=== PATIENT | female | born 1960 | race Caucasian/White ===

== ENCOUNTER 2017-11-12 22:02 | Observation (INO) | payer OTHER ==
[2017-11-12 22:51] LABS: Troponin I Less than 0.010 ng/mL (< 0.028)
[2017-11-12 23:36] VITALS: BMI 28.0
[2017-11-13] MEDS ORDERED: Acetaminophen 325 MG TAB PO PRN
[2017-11-13] MEDS ORDERED: Ondansetron HCl/PF 4 MG/2 ML Vial IVP PRN
[2017-11-13] MEDS ORDERED: Aspirin 325 MG TAB PO SCH ×2 (00:15→08:00)
[2017-11-13 01:27] LABS: Troponin I Less than 0.010 ng/mL (< 0.028)
[2017-11-13] MEDS ORDERED: Zolpidem Tartrate 5 MG TAB PO SCH ×2 (01:30→21:00)
[2017-11-13 04:03] LABS: #Basophils 0.1 thou/uL (0.0-0.2); #Eosinphils 0.5 thou/uL (0.0-0.7); #Lymphocytes 4.3 thou/uL (1.20-3.40); #Monocytes 0.8 thou/uL (0.11-0.59); #Neutrophils 5.3 thou/uL (1.40-6.50); %Basophils 0.8 % (0.0-1.0); %Eosinophils 4.6 % (0.0-10.0); %Lymphocytes 39.2 % (21.0-51.0); %Monocytes 7.5 % (0.0-10.0); %Neutrophils 47.8 % (42.0-75.0); Hemoglobin 13.3 g/dL (12.0-16.0); Mean Corpuscular HGB CONC 33.2 g/dL (32.0-36.0); Mean Corpuscular Hemoglobin 31.3 pg (27.0-31.0); Mean Corpuscular Volume 94.2 fL (78.0-98.0); Mean Platelet Volume 8.5 fL (7.4-10.4); Platelet Count 250 thou/uL (130-400); RBC Distribution Width 12.8 % (11.5-14.5); Red Blood Cell (RBC) Count 4.25 mill/uL (4.20-5.40)
[2017-11-13 04:24] LABS: Anion Gap 14 mmol/L (10-20); BUN (Urea Nitrogen) 13 mg/dL (9.8-20.1); Calc. Creatinine Clearance 85 mL/min (70-130); Calcium 9.5 mg/dL (7.8-10.44); Carbon Dioxide 26 mmol/L (22-29); Chloride 103 mmol/L (98-107); Estimated GFR-MDRD 67; Glucose 102 mg/dL (70-105); Potassium 3.6 mmol/L (3.5-5.1); Sodium 139 mmol/L (136-145)
[2017-11-13] MEDS ORDERED: Enoxaparin Sodium 40 MG/0.4 ML SYRINGE SC SCH (09:00)
[2017-11-13] MEDS ORDERED: FLUoxetine HCl 20 MG CAP PO SCH (09:00)
--- NOTE | 2017-11-13 09:55 | PDOC.PN ---
- Subjective Encounter Start Date: 11/13/17 Encounter Start Time: 09:00 Subjective: no current chest pain or sob -: feels better - Objective Resuscitation Status: Resuscitation Status FULL:Full Resuscitation MAR Reviewed: Yes Vital Signs & Weight: Vital Signs (12 hours) Temp Pulse Resp BP BP Pulse Ox 11/13/17 07:46 97.8 F 57 L 15 133/73 94 L 11/13/17 03:28 58 L 18 137/65 93 L 11/12/17 23:33 97.3 F L 50 L 20 162/74 H 98 Weight Weight 163 lb 11.2 oz Result Diagrams: 11/13/17 03:29 11/13/17 03:29 Phys Exam - Physical Examination HEENT: PERRLA, moist MMs Neck: no JVD, supple Respiratory: no wheezing, no rales Cardiovascular: RRR, no significant murmur Gastrointestinal: soft, non-tender, positive bowel sounds Musculoskeletal: no edema, pulses present Neurological: non-focal, moves all 4 limbs Psychiatric: normal affect, A&O x 3 Dx/Plan (1) Chest pain Code(s): R07.9 - CHEST PAIN, UNSPECIFIED Status: Acute Qualifiers: Chest pain type: unspecified Qualified Code(s): R07.9 - Chest pain, unspecified (2) Acute bronchitis Code(s): J20.9 - ACUTE BRONCHITIS, UNSPECIFIED Status: Acute Qualifiers: Bronchitis organism: unspecified organism Qualified Code(s): J20.9 - Acute bronchitis, unspecified (3) Tobacco abuse Code(s): Z72.0 - TOBACCO USE Status: Chronic - Plan await exercise stress test results -: alb inh q6h prn -: may dc home if stress test is normal * . Review of Systems - Medications/Allergies Allergies/Adverse Reactions: Allergies Allergy/AdvReac Type Severity Reaction Status Date / Time codeine Allergy Verified 11/13/17 00:17 Medications: Current Medications Acetaminophen (Tylenol) 650 mg PO Q4H PRN PRN Reason: Headache/Fever or Pain Last Admin: 11/13/17 00:48 Dose: 650 mg Aspirin (Aspirin) 325 mg PO QAM-WM [facility] Enoxaparin Sodium (Lovenox) 40 mg SC 0900 [facility] Fluoxetine HCl (Prozac) 60 mg PO DAILY AISHWARYA Ondansetron HCl (Zofran) 4 mg IVP Q6H PRN PRN Reason: Nausea/Vomiting Zolpidem Tartrate (Ambien) 10 mg PO HS AISHWARYA
--- NOTE | 2017-11-13 09:58 | HP ---
PRIMARY CARE PHYSICIAN: Dahiana Solis DO CODE STATUS: FULL CODE. TIME OF EVALUATION: Around 12:00 a.m. CHIEF COMPLAINT: For this patient was chest pain. HISTORY OF PRESENT ILLNESS: This is a 57-year-old female patient with past medical history of fibromyalgia and breast cancer, in remission. No other significant medical problems, came to the hospital after having an episode of chest tightness, associated with near syncope, feeling lightheaded, feeling that she was about to pass out, severe sweating, symptoms lasted for a few minutes, associated with nausea and vomiting x1. She believes that it could have been triggered by the work that she was doing in her lawn, burning some brush that she felt overheated. No alleviating factors, although this improved by itself. Symptoms started suddenly. REVIEW OF SYSTEMS: Constitutional: No fever or chills or generalized weakness. Respiratory: No cough, sputum production, or shortness of breath. Cardiovascular: The patient reported sweating, chest tightness, near syncope, no palpitations. Gastrointestinal: Nausea and vomiting x1. No diarrhea or abdominal pain. DIRECTOR OF CAREER SERVICES: No dizziness, headache, or feeling lightheaded. Genitourinary: No burning on urination. Extremities: No leg swelling. All other systems were reviewed and negative except for the findings mentioned above. PAST MEDICAL HISTORY: Mentioned in the HPI. PAST SURGICAL HISTORY: Breast cancer removal in the left breast, and hysterectomy. FAMILY HISTORY: Reviewed and non contributory for current presentation. SOCIAL HISTORY: Patient denies alcohol use. No drug use. Patient smoked 1 pack of cigarettes per day. KNOWN ALLERGIES: CODEINE, SULFATE. REPORTED MEDICATIONS: Prozac. PHYSICAL EXAMINATION: VITAL SIGNS: Blood pressure 138/88 with heart rate 57, respiratory rate was 18 , temperature 98.7. Pain was 0/10. Oxygen saturation was 100 on room air. PHYSICAL EXAMINATION: GENERAL APPEARANCE: The patient was alert and oriented, in no acute distress. HEENT: Eye, normal conjunctivae. Moist oral mucosa. Eyes, anicteric. NECK: No JVD. RESPIRATORY: Bilateral air entry. No rales, no wheezing. Symmetric expansion. CARDIOVASCULAR: Normal rate, regular rhythm. No murmurs, no gallop. No edema. ABDOMEN: Soft, normal bowel sounds. MUSCULOSKELETAL: Baseline range of motion. No sternal tenderness. SKIN: Warm and intact. No pallor, no rash, no redness. Peripheral pulses are present. Capillary refill seems to be intact. NEUROLOGIC: Baseline sensory. No evidence of any new focal weakness. Baseline speech. Cranial nerves seem to be intact. PSYCHIATRIC: The patient is in good mood. No anxiety, oriented, optimal judgment. IMAGING: EKG as discussed with the performing physician from the ER shows sinus bradycardia with a rate of 55, no any evidence of acute arrhythmias or acute ischemic event. Chest x-ray was reviewed. The patient has no acute intrathoracic abnormalities. LABORATORY DATA: Reviewed. The patient has white count 11, hemoglobin 13, platelet count 115. D-dimer was negative. Chemistry: Sodium 139, potassium 3.6, chloride 103, carbon dioxide 26, anion gap 14, BUN 13, creatinine 0.8, GFR 67, glucose 102, calcium 9.5. Troponin was negative x2. ASSESSMENT AND PLAN: The patient was placed in the hospital with following medical problems: 1. Chest pain, rule out acute coronary syndrome. The patient has chest tightness associated with sweating and near syncope episode. Patient has risk factors for acute coronary syndrome, even not able rule it in. We will do a stress test in the morning. The patient is agreeable for the test. Risks and benefits have been discussed in details. 2. Everyday smoker. Advised to stop smoking. 3. History of fibromyalgia, patient does not take any medication. Reportedly, she was admitted for pain control. 4. Deep venous thrombosis prophylaxis. SHEYLA
[2017-11-13 11:56] VITALS: BP 129/77; TEMP 97.7
--- NOTE | 2017-11-13 13:29 | DIS ---
DATE OF ADMISSION: 11/12/2017 DATE OF DISCHARGE: 11/13/2017 DISCHARGE DISPOSITION: To home. PRIMARY DISCHARGE DIAGNOSES: Chest pain, which is noncardiac. SECONDARY DISCHARGE DIAGNOSES: Acute bronchitis, tobacco abuse. PROCEDURES DONE DURING HOSPITALIZATION: The patient has had 3 sets of troponin done, which has been negative. BUN 13, creatinine 0.8. Chest x-ray done showed no acute cardiopulmonary process. A treadmill stress test done was negative for ischemia. DISCHARGE MEDICATIONS: Prozac 60 mg daily, Ambien 10 mg p.o. at bedtime, albuterol inhaler q.6 hourly p.r.n. ALLERGIES: Allergic to CODEINE. DISCHARGE PLAN: Patient to follow up with primary care physician in 1 week. BRIEF COURSE DURING HOSPITALIZATION: Patient initially came in with complaints of chest pain. She had also mentioned that she was working out in the sun and was clearing up and burning some brushes. The patient has known history of tobacco use as well. Three sets of troponin were done, which were negative. Exercise stress test done showed no ischemic changes. The patient participated on Jose protocol for up to 7 minutes with 90% maximal heart rate achieved. She did not complain of any chest pain during the procedure. She is hemodynamically stable and has been counseled with regards to tobacco cessation. She is going to follow up with her primary care physician to get Chantix. She is ambulating and eating well prior to discharge. The patient likely has mild acute bronchitis and has been given a prescription for albuterol inhaler. Please see a face to face documentation on [facility] for the day of discharge. SHEYLA
--- NOTE | 2017-11-19 11:32 | EKG ---
Test Reason : Blood Pressure : / mmHG Vent. Rate : 055 BPM Atrial Rate : 055 BPM P-R Int : 168 ms QRS Dur : 080 ms QT Int : 458 ms P-R-T Axes : 061 029 052 degrees QTc Int : 438 ms Sinus bradycardia Otherwise normal ECG Confirmed by BEATRIZ MCKINLEY, SONNY ([id number]), editor city [place] ([id number]) on 11/19/2017 11:32:06 AM Referred By: Confirmed By:SONNY HENDERSON MD
== END 2017-11-13 12:43 | disposition home or self-care (01) ==
LOC: ERS 22:02 → 2SW 22:32
PROVIDERS: ADMIT Hospitalist; ATTEND Hospitalist
DX: R07.89 Other chest pain (principal); J20.9 Acute bronchitis, unspecified; F17.200 Nicotine dependence, unspecified, uncomplicated; Z79.899 Other long term (current) drug therapy; Z88.5 Allergy status to narcotic agent
CPT/HCPCS: 36415; 80048; 85025; 85379; 93005; 93017; 94760; 99406; G0378

== ENCOUNTER 2018-03-24 13:28 | Outpatient (CLI) | payer OTHER | END 2018-03-24 13:29 | disposition home or self-care (01) | LOC: BICMAMMO 13:28 | PROVIDERS: ATTEND Family Medicine | DX: Z08 Encounter for follow-up examination after completed treatment for malignant neoplasm (principal); N64.59 Other signs and symptoms in breast; Z85.3 Personal history of malignant neoplasm of breast; Z80.3 Family history of malignant neoplasm of breast | CPT/HCPCS: 77066; G0279 ==

== ENCOUNTER 2020-11-18 10:00 | Outpatient (CLI) | payer BC | END 2020-11-18 10:01 | disposition home or self-care (01) | LOC: BICMAMMO 10:00 | PROVIDERS: ATTEND Family Medicine | DX: R22.32 Localized swelling, mass and lump, left upper limb (principal); R92.1 Mammographic calcification found on diagnostic imaging of breast; R59.0 Localized enlarged lymph nodes; Z85.3 Personal history of malignant neoplasm of breast; Z98.890 Other specified postprocedural states | CPT/HCPCS: 77066; G0279 ==

== ENCOUNTER → 2020-12-04 | Day surgery (SDC) | payer BC | LOC: BICULT 12:08 | PROVIDERS: ATTEND Family Medicine | PROC: 07963ZX Drainage of Left Axillary Lymphatic, Percutaneous Approach, Diagnostic (ICD-10-PCS; principal; 2020-12-04) | DX: R59.0 Localized enlarged lymph nodes (principal); Z85.3 Personal history of malignant neoplasm of breast; Z88.5 Allergy status to narcotic agent | CPT/HCPCS: 38505; 88173; 88305; 88342 ==

== ENCOUNTER 2021-06-10 09:01 | Outpatient (CLI) | payer OTHER | END 2021-06-10 09:02 | disposition home or self-care (01) | LOC: MRI 09:01 | PROVIDERS: ATTEND Physician Assistant Medical | DX: S89.91XA Unspecified injury of right lower leg, initial encounter (principal); S83.241A Other tear of medial meniscus, current injury, right knee, initial encounter; M17.11 Unilateral primary osteoarthritis, right knee; M71.21 Synovial cyst of popliteal space [Baker], right knee ==